=== PATIENT | female | born 1975 | race Caucasian/White ===

== ENCOUNTER 2019-11-20 16:19 | Emergency (ER) | payer SELFPAY ==
[~2019-11-20] VITALS: Ht 170.1 cm; Wt 72.6 kg
== END 2019-11-20 17:07 | disposition home or self-care (01) ==
LOC: ED 16:19
DX: R10.32 Left lower quadrant pain (principal)

== ENCOUNTER 2020-03-26 16:26 | Emergency (ER) | payer MEDICAID ==
[~2020-03-26] VITALS: Ht 170.1 cm; Wt 68.0 kg
== END 2020-03-26 19:00 | disposition left against medical advice (07) ==
LOC: ED 16:26
DX: R06.02 Shortness of breath (principal); R07.9 Chest pain, unspecified; R20.0 Anesthesia of skin; R20.2 Paresthesia of skin; T50.905A Adverse effect of unspecified drugs, medicaments and biological substances, initial encounter; Y92.89 Other specified places as the place of occurrence of the external cause